=== PATIENT | female | born 1955 | race African-American/Black ===

== ENCOUNTER 2016-04-10 10:55 | Emergency (ER) | payer MEDICAID, OTHER ==
[~2016-04-10] VITALS: Ht 172.7 cm; Wt 73.9 kg
[~2016-04-10 10:55] MED LIST: CYCL-181; LIS5T PO; NAP500T PO; TRAM50TA2 PO; TRIA25CA
[2016-04-10 11:06] VITALS: BP 142/77
== END 2016-04-10 12:39 | disposition home or self-care (01) ==
LOC: ER 10:55
DX: M25.512 Pain in left shoulder (principal); M19.90 Unspecified osteoarthritis, unspecified site; I10 Essential (primary) hypertension; G89.29 Other chronic pain; F17.210 Nicotine dependence, cigarettes, uncomplicated; Z98.51 Tubal ligation status; Z90.710 Acquired absence of both cervix and uterus; Z76.0 Encounter for issue of repeat prescription; Z88.0 Allergy status to penicillin; Z91.041 Radiographic dye allergy status; Z91.040 Latex allergy status
CPT/HCPCS: 93005

== ENCOUNTER 2017-08-09 09:55 | Emergency (ER) | payer OTHER ==
[~2017-08-09] VITALS: Ht 172.7 cm; Wt 81.6 kg
[2017-08-09 10:20] VITALS: BP 204/101
== END 2017-08-09 11:49 | disposition home or self-care (01) ==
LOC: ER 10:07
DX: J02.9 Acute pharyngitis, unspecified (principal); J04.0 Acute laryngitis; I10 Essential (primary) hypertension; M19.90 Unspecified osteoarthritis, unspecified site; F17.210 Nicotine dependence, cigarettes, uncomplicated; Z98.51 Tubal ligation status; Z90.710 Acquired absence of both cervix and uterus

== ENCOUNTER 2018-01-05 18:06 | Emergency (ER) | payer OTHER ==
[~2018-01-05] VITALS: Ht 172.7 cm; Wt 83.9 kg
[2018-01-05 18:36] VITALS: BP 139/78
[2018-01-05] MEDS ORDERED: HYDROcodone-ACET 10/325MG TAB PO ONE (20:30)
[2018-01-05] MEDS ORDERED: cefTRIAXone SOD 1,000 MG VL IM ONE (20:30)
[2018-01-05] MEDS ORDERED: LIDOCAINE W/ EPINEPHRINE 1% 20ML VIAL ID ONE (20:30)
== END 2018-01-05 21:14 | disposition home or self-care (01) ==
LOC: ER 18:06
DX: L73.2 Hidradenitis suppurativa (principal); N39.0 Urinary tract infection, site not specified; I10 Essential (primary) hypertension; Z90.710 Acquired absence of both cervix and uterus
CPT/HCPCS: 10060; 96372; 99283; J0696